=== PATIENT | male | born 1965 | race Caucasian/White ===

== ENCOUNTER 2018-10-29 20:55 | Emergency (ER) | payer OTHER ==
[2018-10-29] MEDS ORDERED: Acyclovir* 400 MG TAB PO ONE (22:59)
[2018-10-29] MEDS ORDERED: Gabapentin CAP(*) 300 MG PO ONE (23:01)
[2018-10-29] MEDS ORDERED: Acetaminophen TAB* 325 MG PO ONE ×2 (23:04→23:05)
--- NOTE | 2018-10-29 23:06 | ED ---
HPI Chest Pain - HPI Summary HPI Summary: Patient complains of headache, left-sided upper back pain, left side chest pain starting at 3 AM this morning. Also complains of noticing rash starting on left upper back radiating to left side chest starting 2 days ago. Pain is described as constant, sharp. Pain with inhalation. Patient states she has history of spontaneous pneumothorax 7, history of blood clots. Patient on Xarelto. Patient sent from [facility] to rule out pneumothorax. Denies fever, cough, sore throat, SOB, N/V/D, abdominal pain, change in urine, change in BM. Medical history is asthma, anemia. - History of Current Complaint Chief Complaint: EDHeadache Time Seen by Provider: 10/29/18 22:45 Hx Obtained From: Patient Onset/Duration: Started Hours Ago Timing: Constant Initial Severity: Mild Current Severity: Severe Pain Intensity: 9 Pain Scale Used: 0-10 Numeric Chest Pain Location: Discrete at:, Left Anterior, Left Lateral Chest Pain Radiates: Yes Chest Pain Radiates To:: Back Character: Sharp/Stabbing Aggravating Factor(s): Movement, Deep Breaths Alleviating Factor(s): Position Associated Signs and Symptoms: Positive: Chest Pain, Back Pain - Allergy/Home Medications Allergies/Adverse Reactions: Allergies Allergy/AdvReac Type Severity Reaction Status Date / Time No Known Allergies Allergy Verified 10/30/18 00:03 PMH/Surg Hx/FS Hx/Imm Hx Endocrine/Hematology History: Reports: Hx Anticoagulant Therapy Cardiovascular History: Denies: Hx Pacemaker/ICD History: Denies: Hx Dialysis Sensory History: Denies: Hx Legally Blind Opthamlomology History: Denies: Hx Eye Prosthesis EENT History: Denies: Hx Deafness Neurological History: Denies: Hx Dementia Psychiatric History: Denies: Hx Autism Infectious Disease History: No Infectious Disease History: Denies: Traveled Outside the [place] in Last 30 Days - Family History Known Family History: Positive: Non-Contributory - Social History Alcohol Use: Occasionally Substance Use Type: Reports: None Hx Tobacco Use: Yes Review of Systems Constitutional: Negative Eyes: Negative ENT: Negative Positive: Chest Pain Respiratory: Negative Gastrointestinal: Negative Genitourinary: Negative Musculoskeletal: Negative Positive: Rash Neurological: Negative Psychological: Normal All Other Systems Reviewed And Are Negative: Yes Physical Exam - Summary Physical Exam Summary: erythematous, vesicular rash in satellites lesions ranging from left upper back around to left anterior chest. Area of rash is consistent with patient's pain. Pain is reproducible with palpation. No involvement of face or ears. Triage Information Reviewed: Yes Vital Signs On Initial Exam: Initial Vitals Temp Pulse Resp BP Pulse Ox 97.3 F 82 20 136/83 99 10/29/18 21:05 10/29/18 21:05 10/29/18 21:05 10/29/18 21:05 10/29/18 21:05 Vital Signs Reviewed: Yes Appearance: Positive: Well-Appearing Skin: Positive: Warm Head/Face: Positive: Normal Head/Face Inspection Eyes: Positive: Normal ENT: Positive: Normal ENT inspection Neck: Positive: Supple Respiratory/Lung Sounds: Positive: Clear to Auscultation Cardiovascular: Positive: Normal Abdomen Description: Positive: Nontender Musculoskeletal: Positive: Normal Neurological: Positive: Normal Psychiatric: Positive: Normal AVPU Assessment: Alert - [place] Coma Scale Best Eye Response: 4 - Spontaneous Best Motor Response: 6 - Obeys Commands Best Verbal Response: 5 - Oriented Coma Scale Total: 15 Diagnostics - Vital Signs Vital Signs Temp Pulse Resp BP Pulse Ox 10/29/18 21:05 97.3 F 82 20 136/83 99 - Laboratory Result Diagrams: 10/29/18 23:00 10/29/18 23:00 Lab Statement: Any lab studies that have been ordered have been reviewed, and results considered in the medical decision making process. Chest Pain Course/Dx - Course Course Of Treatment: Patient complains of headache, left-sided upper back pain, left side chest pain starting at 3 AM this morning. Also complains of noticing rash starting on left upper back radiating to left side chest starting 2 days ago. Pain is described as constant, sharp. Pain with inhalation. Patient states she has history of spontaneous pneumothorax 7, history of blood clots. Patient on Xarelto. Patient sent from [facility] to rule out pneumothorax. Denies fever, cough, sore throat, SOB, N/V/D, abdominal pain, change in urine, change in BM. Medical history is asthma, anemia. Vital signs within normal limits. Labs unremarkable. Chest x-ray negative for pneumothorax or acute process. EKG sinus rhythm, normal VT interval. No prior EKG to compare to. - Diagnoses Provider Diagnoses: Shingles Discharge ED - Sign-Out/Discharge Documenting (check all that apply): Patient Departure Patient Received Moderate/Deep Sedation with Procedure: No - Discharge Plan Condition: Stable Disposition: HOME Prescriptions: Acyclovir* [Zovirax 400 MG TAB*] 800 mg PO QID 7 Days #35 tab Gabapentin CAP(*) [Neurontin 300 CAP(*)] 300 mg PO BID 5 Days #10 cap Lidocaine PATCH 5%* [Lidoderm 5% Patch*] 1 patch TRANSDERM DAILY 5 Days #5 patch Patient Education Materials: Shahzad (ED) Referrals: Desmond KEVIN,Richard Chavez [Primary Care Provider] - - Billing Disposition and Condition Condition: STABLE Disposition: Home
[2018-10-29 23:09] LABS: ABS Basophils 0.1 10^3/ul (0-0.2); ABS Eosinophils 0.1 10^3/ul (0-0.6); ABS Lymphocytes 1.1 10^3/ul (1.0-4.8); ABS Monocytes 0.9 10^3/ul (0-0.8); ABS Neutrophils 4.6 10^3/ul (1.5-7.7); Hematocrit 46 % (42-52); Hemoglobin 15.5 g/dL (14.0-18.0); Lymphocyte % 16.6 %; Mean Corpuscular HGB Conc 34 g/dL (31-36); Mean Corpuscular Hemoglobin 30 pg (27-31); Mean Corpuscular Volume 88 fL (80-94); Mean Platelet Volume 6.9 fL (7.4-10.4); Platelet Count 253 10^3/uL (150-450); Red Blood Count 5.18 10^6 /uL (4.18-5.48); Red Cell Distribution Width 14 % (10-15); White Blood Count 6.8 10^3/uL (3.5-10.8)
[2018-10-29 23:14] LABS: INR 2.22 (0.82-1.09)
[2018-10-29 23:27] LABS: Albumin 4.4 g/dL (3.2-5.2); Albumin/Globulin Ratio 1.7 (1-3); C Reactive Protein 11.01 mg/L (<8.01); Calcium 9.6 mg/dL (8.6-10.3); EGFR African American 104.5 (>60); EGFR Non-African American 86.4 (>60); Globulin 2.6 g/dL (2-4); Potassium 3.8 mmol/L (3.5-5.0); Total Bilirubin 0.7 mg/dL (0.2-1.0)
[2018-10-29] MEDS ORDERED: Lidocaine PATCH 5%* 1 PATCH TRANSDERM SCH (23:45)
[2018-10-30 00:18] VITALS: BP 161/91
[2018-10-30] MEDS ORDERED: Lidocaine Patch REMOVE* 1 NOTE MISC PATCH OFF SCH (11:30)
== END 2018-10-30 01:09 | disposition home or self-care (01) ==
LOC: ED 20:55
DX: B02.9 Zoster without complications (principal); M54.9 Dorsalgia, unspecified; R07.9 Chest pain, unspecified; Z79.01 Long term (current) use of anticoagulants; R21 Rash and other nonspecific skin eruption; J45.909 Unspecified asthma, uncomplicated; D64.9 Anemia, unspecified
CPT/HCPCS: 36415; 71045; 80053; 84484; 85025; 85610; 86140; 93005; 99283; A9270-GY